=== PATIENT | male | born 2000 | race Caucasian/White ===

== ENCOUNTER 2023-01-01 06:44 | Emergency (ER) | payer OTHER ==
[~2023-01-01] VITALS: Ht 182.9 cm; Wt 68.0 kg
[2023-01-01 07:00] VITALS: BP 143/51
== END 2023-01-01 07:29 | disposition left against medical advice (07) ==
LOC: ER 06:44
DX: T40.411A Poisoning by fentanyl or fentanyl analogs, accidental (unintentional), initial encounter (principal); Z53.21 Procedure and treatment not carried out due to patient leaving prior to being seen by health care provider; Z91.011 Allergy to milk products; X58.XXXA Exposure to other specified factors, initial encounter
CPT/HCPCS: 99283; J2310